=== PATIENT | male | born 1990 | race Caucasian/White ===

== ENCOUNTER 2019-03-07 08:53 | Day surgery (SDC) | payer OTHER ==
[~2019-03-07 08:53] MED LIST: BUPIVACAINE HCL 0.5 % INJ/PF 30 ML SDV ONE; CEFAZOLIN 2 GM/D5W RTU 2 GM/50 ML RTUPB IV ONE; CEFAZOLIN 2 GM/D5W RTU 2 GM/50 ML RTUPB IV PRN; LIDOCAINE 1% INJ-PF (10 MG/ML) 30 ML SDV ONE
[2019-03-07] MEDS ORDERED: FENTANYL CITRATE INJ/PF 100 MCG/2 ML AMPUL ONE (10:18)
[2019-03-07] MEDS ORDERED: ACETAMINOPHEN 1,000 MG/100 ML RTUPB IV ONE (10:18)
[2019-03-07] MEDS ORDERED: ONDANSETRON HCL INJ/PF 4 MG/2 ML SDV ONE (10:18)
[2019-03-07] MEDS ORDERED: PROPOFOL INJ 200 MG/20 ML VIAL IV ONE (10:18)
[2019-03-07] MEDS ORDERED: MIDAZOLAM 2 MG/2 ML INJ ONE (10:18)
[2019-03-07] MEDS ORDERED: FENTANYL CITRATE INJ/PF 100 MCG/2 ML AMPUL IV PRN ×3 (12:37)
[2019-03-07] MEDS ORDERED: DIPHENHYDRAMINE HCL 50 MG/ML VIAL IV PRN (12:37)
[2019-03-07] MEDS ORDERED: MORPHINE SULFATE 10 MG/ML INJ IV PRN (12:37)
[2019-03-07] MEDS ORDERED: PROMETHAZINE HCL INJ 25 MG/1 ML VIAL IV PRN ×2 (12:37)
[2019-03-07] MEDS ORDERED: MEPERIDINE HCL/PF INJ 25 MG/1 ML DISP.SYRIN IV PRN (12:37)
[2019-03-07] MEDS: FENTANYL CITRATE INJ/PF 100 MCG/2 ML AMPUL ONE ×2 (13:00→13:05)
[2019-03-07] MEDS ORDERED: MORPHINE SULFATE 10 MG/ML INJ ONE (13:21)
--- NOTE | 2019-03-07 13:29 | OPERATIVE REPORT E ---
Operative Report NAME: SAVANNA CHERRY : 1990 AGE: 29Y DATE OF SURGERY: 03/07/2019 ROOM: PREOPERATIVE DIAGNOSIS: Right wrist posttraumatic arthritis. POSTOPERATIVE DIAGNOSIS: Right wrist posttraumatic arthritis. PROCEDURES: 1. Right wrist open radial styloidectomy. 2. Right wrist arthroscopy with debridement, separate incisions. SURGEON: SERGIO SEXTON M.D. ANESTHESIA: General. BLOOD LOSS: Minimal. COMPLICATIONS: None. INDICATIONS: The patient is a 29-year-old man who previously had sustained a comminuted fracture of his right scaphoid, healed with nonoperative treatment in a slightly abnormal position leading to posttraumatic arthritis most noticeably on the radial styloid. He has failed nonoperative treatment. DESCRIPTION OF PROCEDURE: Following induction of general anesthetic and administration of antibiotics, the patient was positioned supine on the operating room table. All bony prominences were padded. Tourniquet was placed proximally on the right arm, but not inflated. The right upper extremity was sterilely prepped with Chloraprep and draped in standard fashion. The arm was exsanguinated. The tourniquet was inflated to 250 mmHg. At the beginning of the procedure, a longitudinal incision was made on the radial aspect of the wrist overlying the radial styloid and slightly distal to it. A short incision was performed through skin. Blunt dissection was performed through the subcutaneous tissue. Care was taken to identify and protect branches of the superficial radial nerve. The radial artery was identified distally. It was mobilized and protected as well. A 15 blade was used subperiosteal dissection of the radial styloid and the adjoined capsule. Hook osteotome was used and radial styloidectomy was performed just short of the radioscaphocapitate ligament, which was left intact. The area was rounded with a rongeur. The wrist capsule was then closed with 3-0 Vicryl suture, subcutaneous tissue closed with 3-0 Vicryl, and the skin reapproximated with subcuticular 3-0 Monocryl suture. We next turned our attention to the wrist arthroscopy. Twenty pounds of traction was placed across the radiocarpal joint through a wrist traction tower. A 3-4 portal was made and needle localization. Sharp incision was performed through skin blunt trocar entry. Diagnostic arthroscopy was performed. Diagnostic arthroscopy confirmed an adequate as well as proper placement of the styloidectomy, leaving the radioscaphocapitate ligament intact. The scapholunate ligament was also found to be intact as was the lunotriquetral ligament. A 6R portal was then made, needle localization, sharp incision through skin, blunt trocar entry. Shaver was brought in. Capsular debridement was performed as was removal of some debris from the radial styloidectomy. Styloidectomy site was smoothed with the shaver as well. Arthroscope and shaver were removed. The 3-4 portal was closed with a 3-0 Monocryl suture and the 6-0 portal was opened specifically for the egress of fluid and approximated with a Steri-Strip. Steri-Strips were applied to all other wounds as well. Total of 10 mL of 0.25% Marcaine was injected for postoperative analgesia and a bulky sterile dressing was applied. The patient tolerated the procedure well without complications and was brought to recovery room in stable condition. DICTATING PHYSICIAN: SERGIO SEXTON M.D. [id number] PHY#: [id number] ID: [id number] JOB#: [id number] ACCT: [id number] cc:SERGIO SEXTON M.D. > MTDD
[2019-03-07] MEDS ORDERED: GLYCOPYRROLATE 1 MG/5 ML SYRINGE ONE (13:49)
[2019-03-07] MEDS ORDERED: SUCCINYLCHOLINE CHLORIDE INJ 200 MG/10 ML VIAL ONE (13:49)
[2019-03-07] MEDS ORDERED: KETOROLAC TROMETHAMINE 60 MG/2 ML SDV ONE (13:49)
[2019-03-07] MEDS ORDERED: OXYCODONE-ACETAMINOPHEN 5-325 MG TABLET ONE (13:56)
[2019-03-07] MEDS ORDERED: OXYCODONE-ACETAMINOPHEN 5-325 MG TABLET PO PRN (14:00)
[2019-03-07] MEDS ORDERED: ONDANSETRON HCL INJ/PF 4 MG/2 ML SDV IV PRN (14:02)
[2019-03-07 14:59] VITALS: BP 111/55
== END 2019-03-07 15:00 | disposition home or self-care (01) ==
LOC: OROUT 08:53
PROVIDERS: ATTEND Orthopaedic Surgery
DX: M12.531 Traumatic arthropathy, right wrist (principal)
CPT/HCPCS: 25230; 29846; J2250; J3490 ×2; J1885; J3010; J2270; J0330; J2405; J2704; J0690; J0131; 1830

== ENCOUNTER 2019-08-26 06:38 | Day surgery (SDC) | payer OTHER ==
[~2019-08-26 06:38] MED LIST changes: -BUPIVACAINE HCL 0.5 % INJ/PF 30 ML SDV ONE; -CEFAZOLIN 2 GM/D5W RTU 2 GM/50 ML RTUPB IV ONE; -CEFAZOLIN 2 GM/D5W RTU 2 GM/50 ML RTUPB IV PRN; +CEFAZOLIN SODIUM 2 GM in DEXTROSE 5%-WATER 100 ML IV PRN; +FENTANYL CITRATE INJ/PF 250 MCG/5 ML AMPULE ONE; -LIDOCAINE 1% INJ-PF (10 MG/ML) 30 ML SDV ONE; +MIDAZOLAM 2 MG/2 ML INJ ONE; +PROPOFOL INJ 200 MG/20 ML VIAL IV ONE
[2019-08-26] MEDS ORDERED: BUPIVACAINE HCL 0.5 % INJ/PF 30 ML SDV ONE (10:21)
[2019-08-26] MEDS ORDERED: LIDOCAINE 1% INJ-PF (10 MG/ML) 30 ML SDV ONE (10:21)
[2019-08-26] MEDS ORDERED: MEPERIDINE HCL/PF INJ 25 MG/1 ML DISP.SYRIN IV PRN (11:31)
[2019-08-26] MEDS ORDERED: DIPHENHYDRAMINE HCL 50 MG/ML VIAL IV PRN (11:31)
[2019-08-26] MEDS ORDERED: FENTANYL CITRATE INJ/PF 100 MCG/2 ML AMPUL IV PRN ×3 (11:31)
[2019-08-26] MEDS ORDERED: PROMETHAZINE HCL INJ 25 MG/1 ML VIAL IV PRN ×2 (11:31)
[2019-08-26] MEDS ORDERED: BUPIVACAINE HCL 0.5 % INJ/PF 30 ML SDV INJ ONE (11:37)
[2019-08-26] MEDS ORDERED: PROPOFOL INJ 200 MG/20 ML VIAL IV ONE (11:57)
[2019-08-26] MEDS ORDERED: OXYCODONE-ACETAMINOPHEN 5-325 MG TABLET PO PRN (11:59)
[2019-08-26] MEDS ORDERED: ONDANSETRON HCL INJ/PF 4 MG/2 ML SDV IV PRN (12:00)
--- NOTE | 2019-08-26 12:04 | Operative Report ---
Operative Report DATE OF SURGERY: 08/26/19 PREOPERATIVE DIAGNOSIS: left wrist pain POSTOPERATIVE DIAGNOSIS: left wrist radiocarpal synovitis. left wrist midcarpal synovitis OPERATION: 1. Left wrist examination under anesthesia/fluoroscopic evaluation of carpal motion under anesthesia. 2. Left wrist radiocarpal arthroscopy with debridement. 3. 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 He has failed nonoperative treatment. Description of procedure: Following the induction of a general anesthetic and administration of 2 g of Ancef the patient was positioned supine on the operating room table. All bony prominences were padded. Prior to sterile preparation of the extremity examination under anesthesia with the use of fluoroscopy was performed. Examination was performed to evaluate carpal kinematics. There was no dorsal or volar midcarpal instability elicited under anesthesia with fluoroscopic guidance. The left upper extremity was then sterilely prepped with ChloraPrep and draped in standard fashion. The arm was exsanguinated and the tourniquet inflated to 250 mmHg. 20 pounds of traction were placed across the radiocarpal and midcarpal joints with the assistance of a wrist traction tower. We first turned our attention to the radiocarpal arthroscopy. 3-4 portal was made first. Sharp incision was performed through skin followed by blunt dissection through the capsule. Diagnostic arthroscopy demonstrated synovitis on the ulnar aspect of the wrist. The scapholunate, lunotriquetral, and TFCC were intact. A 6R portal was then made. Needle localization was used followed by sharp incision through skin and blunt entry. Shaver was brought in and synovitis on the ulnar aspect of the wrist was debrided. We next turned our attention to the midcarpal joint. Midcarpal radial portal was made next. The localization was performed followed by sharp incision and blunt trocar entry. Diagnostic arthroscopy demonstrated synovitis on the ulnar aspect of the midcarpal joint. A midcarpal ulnar portal was made. Shaver was brought in through the midcarpal portal and the synovitis was debrided. Probe was brought into the joint and there was good congruency between the scapholunate and lunotriquetral articulations. Portals were closed with buried 3-0 Monocryl suture. 0.5% Marcaine was used for postoperative analgesia and a bulky sterile dressing and splint were applied. The patient tolerated the procedure well without complications and was brought to recovery room in stable condition.
[2019-08-26] MEDS ORDERED: OXYCODONE HCL IR 5 MG TABLET PO PRN (12:05)
[2019-08-26] MEDS ORDERED: OXYCODONE-ACETAMINOPHEN 5-325 MG TABLET ONE (12:19)
[2019-08-26] MEDS ORDERED: OXYCODONE HCL IR 5 MG TABLET ONE (12:20)
[2019-08-26 13:26] VITALS: BP 124/69
[2019-08-26] MEDS ORDERED: DEXAMETHASONE SOD PHOSPHATE INJ 4 MG/1 ML VIAL ONE (15:06)
[2019-08-26] MEDS ORDERED: ONDANSETRON HCL INJ/PF 4 MG/2 ML SDV ONE (15:06)
[2019-08-26] MEDS ORDERED: LIDOCAINE 2% INJ-PF (20 MG/ML) 2 ML AMPUL ONE (15:06)
[2019-08-26] MEDS ORDERED: KETOROLAC TROMETHAMINE 60 MG/2 ML SDV ONE (15:06)
--- NOTE | 2019-08-26 15:27 | RADIOLOGY REPORT (SQ) ---
EXAM DESCRIPTION: WRIST LEFT 2 VIEWS; NO CHG FLUORO COMPLETED DATE/TIME: 08/26/2019 11:49 am REASON FOR STUDY: LEFT WRIST EXAMINATION/MANIPULATION ASST WITH FLUORO IN OR M25.532 PAIN IN LEFT W RIST COMPARISON: None. FLUOROSCOPY TIME: 42 seconds. 3 images saved to PACS. TECHNIQUE: Intra-operative images acquired during surgical procedure to evaluate progress. NUMBER OF IMAGES: 3 images. LIMITATIONS: None. FINDINGS: Images of the wrist acquired during the procedure. IMPRESSION: IMAGE(S) OBTAINED DURING PROCEDURE. COMMENT: Quality ID [id number]: Final reports for procedures using fluoroscopy that document radiation exp osure indices, or exposure time and number of fluorographic images (if radiation exposure indices are not available) Please consult full operative report of the attending physician for description of the procedure. TECHNICAL DOCUMENTATION: JOB ID: [id number] [employer]- All Rights Reserved Reading location - IP/workstation name: [email or web address]
--- NOTE | 2019-08-26 15:27 | RADIOLOGY REPORT (SQ) ---
EXAM DESCRIPTION: WRIST LEFT 2 VIEWS; NO CHG FLUORO COMPLETED DATE/TIME: 08/26/2019 11:49 am REASON FOR STUDY: LEFT WRIST EXAMINATION/MANIPULATION ASST WITH FLUORO IN OR M25.532 PAIN IN LEFT W RIST COMPARISON: None. FLUOROSCOPY TIME: 42 seconds. 3 images saved to PACS. TECHNIQUE: Intra-operative images acquired during surgical procedure to evaluate progress. NUMBER OF IMAGES: 3 images. LIMITATIONS: None. FINDINGS: Images of the wrist acquired during the procedure. IMPRESSION: IMAGE(S) OBTAINED DURING PROCEDURE. COMMENT: Quality ID [id number]: Final reports for procedures using fluoroscopy that document radiation exp osure indices, or exposure time and number of fluorographic images (if radiation exposure indices are not available) Please consult full operative report of the attending physician for description of the procedure. TECHNICAL DOCUMENTATION: JOB ID: [id number] [employer]- All Rights Reserved Reading location - IP/workstation name: [email or web address]
== END 2019-08-26 13:24 | disposition home or self-care (01) ==
LOC: OROUT 06:38
PROVIDERS: ATTEND Orthopaedic Surgery
DX: M25.532 Pain in left wrist (principal); M65.832 Other synovitis and tenosynovitis, left forearm
CPT/HCPCS: 73100; 01830; 29846; J2250; J3490 ×2; J0690; J1100; J1885; J3010; J2405; J7060; J2704